=== PATIENT | male | born 1965 | race African-American/Black ===

== ENCOUNTER 2021-06-01 12:46 | Inpatient (IN) | payer OTHER ==
[~2021-06-01] VITALS: Ht 198.1 cm; Wt 104.3 kg
--- NOTE | ~2021-06-01 | EMS ---
[address] [address] EMS Patient Care Report Name: NAOMIE CAMPBELL Room #: 354-P ADM IN M.R.#: [id number] Admission: 06/01/21 Attend Phys: Pavan Reynaga MD Discharge: Date of : 63 Report #: [id number] THIS REPORT FOR: //name// Report Transmitted: 06/04/2021 14:07 EMS Care Summary [place], [place]/[facility] Incident [id number] @ 06/01/2021 12:07 Incident Location [address] [place] [address] Patient NAOMIE CAMPBELL Male, 55 Years 1965 Patient Address [address] [place] [address] Patient History Hypertension (HTN), Patient Allergies Morphine, Patient Medications None Reported, Chief Complaint SOA/COVID SYMPTOMS Disposition Transported No Lights/[place] Dispatch Reason Breathing Problem Transported To [facility] Narrative M41 DISPATCHED WITH [place] FIRE TO A BREATHING PROBLEM. M41 AOS AND FOUND A MALE PT SITTING ON THE SIDE OF THE BED. PT DOES NOT APPEAR TO BE IN ANY DISTRESS. PT STATES THAT HE FEELS IF HIS CHEST IS CONGESTED [address] [address] EMS Patient Care Report Name: NAOMIE CAMPBELL Room #: 354-P ADM IN M.R.#: [id number] Admission: 06/01/21 Attend Phys: Pavan Reynaga MD Discharge: Date of : 63 Report #: [id number] AND HE IS SOA. PT DENIES COUGH. PT DOES NOT HAVE A FEVER. THE PT DENIES CP, DIZZINESS, NV, ABD PAIN. THE PT STATES THAT HE HAS HX OF HTN AND NOTHING ELSE. PT STATES HE WAS EXPOSED TO SOMEONE ON FRIDAY WHO TESTED POSITIVE LAST FRIDAY. THE PT STATES THAT HE HAS NO OTHER COMPLAINTS AT THIS TIME. O2 SAT OBTAINED. PT WAS IN MID 80S ON ROOM AIR. PT GIVEN O2 NC 6LPM. PTS O2 SATS IMPROVED. VITALS OBTAINED. BGA OBTAINED. 4 LEAD OBTAINED. M41 EN ROUTE [facility]. EN ROUTE PT REMAINED STABLE. REPORT GIVEN TO RN. SIGNATURES OBTAINED. I SIGNED FOR PT DUE TO EXPOSURE TO COVID 19. TRANSFER OF CARE TOOK PLACE. M41 IN SERVICE. 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 Initial Vitals @12:25BP: 120/84,SpO2: 91, @12:37P: 101,CO: 5,SpO2: 93,[place] Suspected: false @12:25P: 101,R: 42,CO: 2,SpO2: 92, @12:24P: 102,R: 22,BP: 146/84,Pain: 0/10,GCS: 15,Glucose: 98,SpO2: 89,Revised Trauma: 12, @12:38P: 102,R: 22,BP: 111/75,Pain: 0/10,GCS: 15,SpO2: 95,Revised Trauma: 12, Assessments @12:30MENTAL:Event Oriented,Time Oriented,Place Oriented,Person Oriented,SKIN:HEENT:Head/Face: No Abnormalities,Neck/Airway: No Abnormalities,LUNG SOUNDS:General: No Abnormalities,ABDOMEN:General: No Abnormalities,PELVIS//GI:No Abnormalities,EXTREMITIES:Capillary Refill: Right Upper: < 2 Sec,Left Arm: No Abnormalities,Right Arm: No Abnormalities,Left Leg: No Abnormalities,Right Leg: No Abnormalities,PULSE:Radial: 2+ Normal,NEURO:No Abnormalities, Impression COVID-19 - Exposure to confirmed patient Procedures @12:16ALS AssessmentResponse: UnchangedSucceeded@12:17Oxygen FlowRate: 6 Device: Nasal Cannula (NC) Response: ImprovedSucceeded@12:253-Lead ECGResponse: [address] [address] EMS Patient Care Report Name: NAOMIE CAMPBELL [place] Room #: 354-P [facility] IN M.R.#: [id number] Admission: 06/01/21 Attend Phys: Pavan Renyaga MD Discharge: Date of : 63 Report #: [id number] UnchangedSucceeded Timeline 12:05,Call Received 12:05,Dispatch Notified 12:07,Dispatched 12:07,En Route 12:14,On Scene 12:16,At Patient 12:16,ALS Assessment,Response: UnchangedSucceeded, 12:17,Oxygen FlowRate: 6 Device: Nasal Cannula (NC) Response: ImprovedSucceeded, 12:24,BP: 146/84 M,PULSE: 102,RR: 22 R,SPO2: 89 Ox,ETCO2: ,B,PAIN: 0,GCS: 15, 12:25,BP: / M,PULSE: 101,RR: 42 R,SPO2: 92 Ox,ETCO2: ,BG: ,PAIN: ,GCS: , 12:25,3-Lead ECG,Response: UnchangedSucceeded, 12:25,BP: 120/84 M,PULSE: ,RR: R,SPO2: 91 Ox,ETCO2: ,BG: ,PAIN: ,GCS: , 12:28,Depart Scene 12:37,BP: / M,PULSE: 101,RR: R,SPO2: 93 Ox,ETCO2: ,BG: ,PAIN: ,GCS: , 12:38,BP: 111/75 M,PULSE: 102,RR: 22 R,SPO2: 95 Ox,ETCO2: ,BG: ,PAIN: 0,GCS: 15, 12:42,At Destination 12:50,Call Closed Disclaimer v1.1 Copyright 2020 [employer] This EMS Care Summary contains data elements from the applicable legal record (which may be displayed differently). It is designed to provide pertinent information for the following purposes: continuity of care, clinical quality, and state data reporting. The complete legal record is available to ED staff and administrators of the receiving hospital in [email or web address]'s Patient Tracker. All data is provided "as is."
[2021-06-01 12:47] VITALS: BP 131/84
[2021-06-01 13:35] LABS: ABSOLUTE NEUTROPHILS 3.6 thou/uL (1.4-8.2); BASOPHILS 0.4 % (0.0-2.0); HEMATOCRIT 51.1 % (42.0-52.0); HEMOGLOBIN 17.2 gm/dL (14.0-18.0); LYMPHOCYTES 14.9 % (24.0-44.0); MCH 29.7 pg (26.0-34.0); MCHC 33.6 g/dL (28.0-37.0); MCV 88.2 fL (80.0-100.0); MONOCYTES 9.1 % (1.0-8.0); PLATELET COUNT 134 thou/uL (150-400); POLYS 75.6 % (36.0-66.0); RDW 13.8 % (10.5-14.5); WBC 4.7 thou/uL (4.0-11.0)
[2021-06-01 13:43] LABS: ANION GAP 11 mmol/L (7-16); BUN 25 mg/dL (7-18); CALCIUM 8.3 mg/dL (8.5-10.1); CHLORIDE 101 mmol/L (98-107); CO2 25 mmol/L (21-32); CREATININE 1.5 mg/dL (0.7-1.3); GLUCOSE 109 mg/dL (74-106); POTASSIUM 4.5 mmol/L (3.5-5.1); SODIUM 137 mmol/L (136-145)
[2021-06-01 13:52] LABS: TROPONIN-I <0.06 ng/mL (<0.06)
[2021-06-01 17:09] VITALS: BP 138/92
[2021-06-01 19:35] VITALS: BP 126/78
--- NOTE | 2021-06-01 23:30 | NUR ---
PT RESTING IN BED LISTENING TO A BOOK ON PHONE. BLUNTED AFFECT. O2 PER NC. LUNGS DIMINISHED. IVF INTACT. PT PROVIDED HS SNACK. PT EDUCATED ON NEW MEDICATIONS TAKING FOR COVID.
[2021-06-02 03:55] VITALS: BP 139/82
[2021-06-02 04:28] LABS: ALBUMIN 2.9 g/dL (3.4-5.0); CALCIUM 8.4 mg/dL (8.5-10.1); CREATININE 1.7 mg/dL (0.7-1.3); DIRECT BILIRUBIN 0.1 mg/dL (<0.1-0.2); PHOSPHORUS 3.6 mg/dL (2.5-4.9); POTASSIUM 4.8 mmol/L (3.5-5.1); TOTAL BILIRUBIN 0.3 mg/dL (0.2-1.0); TOTAL PROTEIN 7.5 g/dL (6.4-8.2)
[2021-06-02 05:03] LABS: HEMATOCRIT 50.6 % (42.0-52.0); HEMOGLOBIN 16.9 gm/dL (14.0-18.0); MCH 29.6 pg (26.0-34.0); MCHC 33.4 g/dL (28.0-37.0); MCV 88.5 fL (80.0-100.0); RBC 5.72 mil/uL (4.50-6.00); RDW 13.7 % (10.5-14.5)
[2021-06-02 07:38] VITALS: BP 125/84
[2021-06-02 11:12] VITALS: BP 132/90
--- NOTE | 2021-06-02 12:17 | EKG ---
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 : 1965 Requested By: Donn Lyon Order Number: [id number] MD: Hieu Jeffery Measurements Intervals [place] Rate: 97 P: 38 AR: 167 QRS: -17 QRSD: 102 T: 131 QT: 359 QTc: 456 Interpretive Statements Sinus rhythm LAE, consider biatrial enlargement LVH with secondary repolarization abnormality Anterior ST elevation, probably due to LVH No previous ECG available for comparison Electronically Signed On 06-02-2021 12:17:43 CDT by Hieu Jeffery [email or web address] <ELECTRONICALLY SIGNED> By: Hieu Jeffery MD 06/02/21 1217 30 30 Hieu Jeffery MD /TADEO
[2021-06-02 15:18] VITALS: BP 123/75
[2021-06-02 21:17] VITALS: BP 117/69
--- NOTE | 2021-06-02 23:06 | NUR ---
PT ALERT AND ORIENTED X4. PT HAS FLAT AFFECT. MOANS WITH EACH BREATH. REFUSED PAIN MEDS. REFUSED SOMTHING TO HELP HIM SLEEP. SATS 88-90% PRESENTLY. NOTIFIED RT. SHE PLACED HIM ON HIGH FLOW NASAL CANNULA WITH HUMIDIFIER AT 8LNC. SAT 94%. WILL CONTINUE TO MONITOR FOR CHANGES. BED DOWN . CALL LIGHT IN REACH. BED ALARM IS ON.
[2021-06-03 01:36] VITALS: BP 107/67
[2021-06-03 03:05] VITALS: BP 106/67
--- NOTE | 2021-06-03 04:30 | HC ---
[facility] [place] [address] CONSULTATION Name: NAOMIE CAMPBELL Room #: [facility] IN M.R.#: [id number] Admission: 06/01/21 Attend Phys: Pavan Reynaga MD Discharge: Date of : 63 Report #: [id number] THIS REPORT FOR: cc: FAM - Family physician unknown FAM - Family physician unknown Brennen Kay MD ~ DATE OF SERVICE: 06/02/2021 INFECTIOUS DISEASE CONSULTATION ATTENDING PHYSICIAN: Dr. Reynaga. REASON FOR EVALUATION: COVID-19 infection, complicated by pneumonitis and respiratory failure requiring supplemental oxygen. HISTORY OF PRESENT ILLNESS: Chart reviewed, the patient examined. This is a 55-year-old gentleman without significant medical history, admitted with progressive dyspnea. Had been ill for a number of days, generalized myalgias, developed progressive dyspnea with cough, poor p.o. intake. It was notable he noted severe night sweats as well. On evaluation, chest x-ray did show some radiographic changes suggestive of pneumonia. Procalcitonin 0.06. D-dimer 0.42. Electrolytes were otherwise unremarkable. Creatinine was slightly elevated at 1.7. He did have a leukopenia as well. He was initiated on remdesivir. ALLERGIES: MORPHINE. CURRENT MEDICATIONS: Include albuterol, zinc, methylprednisolone, thiamine, ivermectin, ascorbic acid, remdesivir. PAST MEDICAL HISTORY: Otherwise unremarkable. FAMILY HISTORY: None. SOCIAL HISTORY: Nonsmoker, no ethanol, no illicit drug use. FAMILY HISTORY: Noncontributory. REVIEW OF SYSTEMS: Otherwise, as noted above. PHYSICAL EXAMINATION: GENERAL: He appears quite ill, although not overt toxic. He is lying in a left lateral decubitus position. He is pleasant, mildly encephalopathic, although responds appropriately, appears to be generally well nourished. VITAL SIGNS: Temperature 98.3, pulse 80, respirations 21, blood pressure is 125/84. [facility] [address] [place] [address] CONSULTATION Name: NAOMIE CAMPBELL Room #: 354-[facility] IN [facility]#: [id number] Admission: 06/01/21 Attend Phys: Pavan Reynaga MD Discharge: Date of : 63 Report #: [id number] SKIN: Warm, dry, no rashes. HEENT: Normocephalic. Extraocular muscles intact. NECK: Supple nasal cannula in place at 5 liters per minute. LUNGS: Bilateral scattered coarse breath sounds. HEART: Regular. I do not appreciate a murmur. ABDOMEN: Slightly distended, generally soft. No peritoneal signs. Nontender. EXTREMITIES: No cyanosis. GENITOURINARY AND RECTAL: Deferred. LABORATORY DATA: CBC: White count of 3.0, H and H 16.9 and 50.6, platelets of 144. Electrolytes: Sodium 138, potassium 4.8, chloride 102, bicarbonate is 26, anion gap of 10, BUN and creatinine 33 and 1.7, estimated GFR of 51. Albumin 29, total protein of 7.5. LFTs are borderline elevated, AST of 38, otherwise unremarkable. D-dimer 0.42. Procalcitonin 0.06. BNP 333. ASSESSMENT AND PLAN: Coronavirus infection, complicated by pneumonitis and respiratory failure, although he has no evident risk factors, is not clear of the white count's reactive situation, does have some minor elevation in his creatinine as well. I think he appears to be at somewhat increased risk for worsening illness. We will add antibacterial empirically, also Actemra as is available. Continue the remdesivir and ivermectin as well as vitamins. Continue to monitor expectantly. <ELECTRONICALLY SIGNED> By: Brennen Kay MD 06/03/21 0430 0930 18 Brennen Kay MD /nt
[2021-06-03 06:17] LABS: HEMATOCRIT 47.4 % (42.0-52.0); HEMOGLOBIN 16.1 gm/dL (14.0-18.0); MCH 29.8 pg (26.0-34.0); MCV 87.6 fL (80.0-100.0); RBC 5.42 mil/uL (4.50-6.00); RDW 13.8 % (10.5-14.5)
[2021-06-03 06:19] LABS: WBC 11.7 thou/uL (4.0-11.0)
[2021-06-03 06:42] LABS: ALBUMIN 2.4 g/dL (3.4-5.0); CALCIUM 7.8 mg/dL (8.5-10.1); CREATININE 1.5 mg/dL (0.7-1.3); DIRECT BILIRUBIN 0.1 mg/dL (<0.1-0.2); PHOSPHORUS 4.1 mg/dL (2.5-4.9); POTASSIUM 4.6 mmol/L (3.5-5.1); TOTAL BILIRUBIN 0.3 mg/dL (0.2-1.0); TOTAL PROTEIN 6.4 g/dL (6.4-8.2)
--- NOTE | 2021-06-03 07:45 | NUR ---
PT PROGRESSING TOWARDS D/C GOALS SLOWLY. HE IS STILL MOANING AT TIMES, REFUSED PAIN MEDICINE. O2 8LNC ON. IVF INFUSING.R AC.
[2021-06-03 08:00] VITALS: BP 116/75
[2021-06-03 11:23] VITALS: BP 120/84
[2021-06-03 14:36] LABS: BE(vivo) -1.7 mmol/L (-2 to +3); HCO3 20.9 mmol/L (22.0-26.0); PCO2 30.8 mmHg (35.0-45.0); PO2 63.8 mmHg (80.0-100.0); sO2 93.6 % (92.0-98.0)
[2021-06-03 16:16] VITALS: BP 125/83
--- NOTE | 2021-06-03 19:23 | NUR ---
ASSUMED PATIENT CARE AT 0700. A/O X3. ON 6L/NC. VSS. ADRIANA APPETIE. WILL KEEP MONITOR.
[2021-06-03 20:00] VITALS: BP 121/79
--- NOTE | 2021-06-04 02:29 | NUR ---
PT ALERT X4. FLAT AFFECT. MOANS AND GRUNTS IF IN PAIN. REFUSED ANY KIND OF PAIN MEDS. ENCOURAGED PT TO EAT DINNER AND A SNACK BUT HE REFUSED. IVF INFUSING R AC. VSS SATS 94-96% ON 6LNC. ENC PT TO TC&DB. BED DOWN CALL LIGHT IN REACH. BED ALARM IS ON. ENC PT TO SIT UP IN CHAIR FOR MEALS.
[2021-06-04 05:10] VITALS: BP 136/81
[2021-06-04 05:12] LABS: HEMATOCRIT 47.1 % (42.0-52.0); HEMOGLOBIN 15.6 gm/dL (14.0-18.0); MCH 29.5 pg (26.0-34.0); MCHC 33.1 g/dL (28.0-37.0); MCV 89.1 fL (80.0-100.0); RBC 5.28 mil/uL (4.50-6.00); RDW 13.5 % (10.5-14.5); WBC 10.7 thou/uL (4.0-11.0)
[2021-06-04 05:34] LABS: ALBUMIN 2.4 g/dL (3.4-5.0); CALCIUM 7.4 mg/dL (8.5-10.1); CREATININE 1.3 mg/dL (0.7-1.3); DIRECT BILIRUBIN 0.1 mg/dL (<0.1-0.2); PHOSPHORUS 3.5 mg/dL (2.5-4.9); POTASSIUM 4.6 mmol/L (3.5-5.1); TOTAL BILIRUBIN 0.3 mg/dL (0.2-1.0); TOTAL PROTEIN 5.6 g/dL (6.4-8.2)
--- NOTE | 2021-06-04 06:21 | NUR ---
PT CONTINUES TO HAVE DIMINISHED BREATHE SONDS. SATS 92-94% THIS AM ON 6LNC. INSTRUCTED ON NEED FOR SPUTUM SAMPLE. ENCOURAGED PT TO MOVE AROUND MORE TODAY.
[2021-06-04 07:13] VITALS: BP 128/84
[2021-06-04 11:21] VITALS: BP 126/88
--- NOTE | 2021-06-04 14:44 | NUR ---
INITIAL ASSESSMENT: CHARLI reviewed chart and spoke with nursing and attending physician. Pt was admitted from home due to COVID pneumonia. Pt placed in Enhanced Isolation. Pt has not received the COVID vaccine. Pt is afebrile and on 6L of O2. Pt is on IV abx and IV steroids. Remdesivir started on 06/01. CHARLI spoke with pt via phone. Introduced role of SW. Pt is alert/orientated. 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 Pt states that prior to admission, he has been independent with ADLs. No use of DME. No hx of HH or post-acute placement. Pt does not currently have a PCP. Pt states that the plan is for both he and his Godmother to return home when medically stable. Pt declines referral to a LTC facility for his Godmother, as he promised to ensure that she would be able remain at home and not be placed in a nursing facility. CHARLI is following to assist as needed with discharge planning.
[2021-06-04 15:36] VITALS: BP 141/92
--- NOTE | 2021-06-04 19:22 | NUR ---
assumed patient at 0700. a/o x4. tolerated on 6l/nc. up to chair. solwly towards poc goals,
[2021-06-04 20:09] VITALS: BP 126/78
--- NOTE | 2021-06-04 22:25 | NUR ---
PT ALERT AND ORIENTED X4. VSS AFEBRILE . SATS 96% ON 6LNC PRESENTY. PT MOANS AT TIMES. DENIED PAIN. BS DIMINSHED ON 6L. ENCOURAGED HIM TO SIT UP TODAY AND HE STATED HE SAT UP FOR 6 HRS. HE ALSO IS EATING BETER TODAY. RR 24. WILL CONTINUE TO MONITOR PT FOR CHANGES.
[2021-06-05 02:50] VITALS: BP 141/97
--- NOTE | 2021-06-05 04:54 | NUR ---
PT PROGRESSING SLOWLY TOWARDS D/C GOALS. VSS AFEBRILE TONIGHT. NO C/O SOA. LESS GRUNTING AND MOANING NOTED FROM PT TONIGHT. HE STILL DENIED PAIN WHEN ASKED IF HE IS IN PAIN. PT MORE COMPLIANT WITH EATING AND SITTING UP. SATS 92-96% TONIGHT ON 6LNC.
[2021-06-05 06:02] LABS: HEMATOCRIT 46.1 % (42.0-52.0); HEMOGLOBIN 15.5 gm/dL (14.0-18.0); MCH 29.7 pg (26.0-34.0); MCHC 33.7 g/dL (28.0-37.0); MCV 88.3 fL (80.0-100.0); RBC 5.22 mil/uL (4.50-6.00); RDW 13.9 % (10.5-14.5); WBC 8.5 thou/uL (4.0-11.0)
[2021-06-05 06:43] LABS: ALBUMIN 2.4 g/dL (3.4-5.0); CALCIUM 7.7 mg/dL (8.5-10.1); CREATININE 1.2 mg/dL (0.7-1.3); DIRECT BILIRUBIN 0.1 mg/dL (<0.1-0.2); POTASSIUM 4.8 mmol/L (3.5-5.1); TOTAL BILIRUBIN 0.3 mg/dL (0.2-1.0); TOTAL PROTEIN 5.5 g/dL (6.4-8.2)
[2021-06-05 07:17] VITALS: BP 136/86
[2021-06-05 11:00] VITALS: BP 134/88
--- NOTE | 2021-06-05 13:53 | NUR ---
SW reviewed chart and spoke with nursing and attending physician. Pt remains in Enhanced Isolation due to COVID. Pt is afebrile and on 4-6L of O2. Pt is on IV abx and IV steroids. Actemra and Remdesivir ordered. Therapy evals ordered to assess pt for discharge needs. Plan is for pt to discharge home when medically stable. SW is following to assist as needed with discharge planning.
[2021-06-05 15:06] VITALS: BP 137/92
--- NOTE | 2021-06-05 17:31 | NUR ---
ASSUMED PATIENT CARE AT 0700. A/O X4. TITRATED O2 TO 3L TOLERATED WELL. POOR APPETITE,SLOWLY TOWARDS POC GOALS.
[2021-06-05 19:32] VITALS: BP 131/72
--- NOTE | 2021-06-06 03:13 | NUR ---
PROGRESS PT A/O X, UP WITH SBA ON 3 LITERS O2 LUNG SOUNDS DIMINISHED. IV TO RF INTACT INFUSING NS@100CC/HR. REMDESIVIR INFUSED ORDERED FOLLOWED BY 50CC NS FLUSH BAG. VOIDING QS PER URINAL HAD A SMALL BM. TOOK A SHOWER INDEPENDENTLY WITH PORTABLE O2 TANK. PT REPORTED FATIGUE AFTER AND ASSISTED TO BED SCD'S REPLACED CONTINUE POC.
[2021-06-06 03:32] VITALS: BP 145/100
[2021-06-06 04:54] LABS: HEMATOCRIT 46.8 % (42.0-52.0); HEMOGLOBIN 15.6 gm/dL (14.0-18.0); MCH 29.6 pg (26.0-34.0); MCHC 33.2 g/dL (28.0-37.0); RBC 5.26 mil/uL (4.50-6.00); RDW 13.3 % (10.5-14.5); WBC 8.6 thou/uL (4.0-11.0)
[2021-06-06 05:41] LABS: CALCIUM 7.7 mg/dL (8.5-10.1); CREATININE 1.2 mg/dL (0.7-1.3); POTASSIUM 4.6 mmol/L (3.5-5.1)
[2021-06-06 07:24] VITALS: BP 141/97
[2021-06-06 11:11] VITALS: BP 136/71
--- NOTE | 2021-06-06 14:07 | NUR ---
CHARLI reviewed chart and spoke with nursing and attending physician. Pt remains in Enhanced Isolation due to COVID. Pt is afebrile and on 2L of O2 at rest. Pt needed 5L of O2 with therapy. Pt is on IV abx and IV steorids. Discharge home is anticipated in 1-2 days. CHARLI spoke with pt via phone to discuss discharge plan. Pt states he feels that he will be strong enough to return home soon. SW discussed possible HH services. Pt is agreeable. CHARLI confirmed home address. HH providers discussed. No preference voiced. CHARLI notified [facility] of new referral. CHARLI discussed with pt the plan for his Godmother, to discharge home with plan to readmit to [facility], when he is discharged. Pt is agreeable with plan. CHARLI is following to assist as needed with discharge planning.
[2021-06-06 15:12] VITALS: BP 147/93
--- NOTE | 2021-06-06 17:45 | NUR ---
PT ALERT AND ORIENTED TIMES FOUR. VSS. 3L NC. PT DENIES PAIN. PT TOLERATES MEDS AND MEALS. PT WORKED WELL WITH PT/OT UP WALKING IN THE ROOM. PT PROGRESSING TOWRADS POC GOALS.
[2021-06-06 19:29] VITALS: BP 146/99
[2021-06-07 03:09] VITALS: BP 125/85
--- NOTE | 2021-06-07 04:18 | NUR ---
PROGRESS PT A/O X4 UP WITH SBA GAIT STEADY BUT GETS SOB WITH TOO MUCH ACTIVITY REQUIRES INCREASED OXYGEN. ON 2 LITERS O2 AND UP TO 5 LITERS WITH ACTIVITY LUNGS CLEAR BUT DIMINISHED NON PRODUCTIVE COUGH PT STATED OCCASIONALLY HAS A SMALL AMOUNT OF THIN CLEAR SPUTUM. VSS, TELEMETRY INTACT READING SR. TAKING ADEQUATE PO FLUIDS, POOR APPETITE STATES THE FOOD HERE GIVES HIM HEART BURN, IS RECEPTIVE TO SNACKS HAD PEANUT BUTTER AND MAURO CRACKERS FOR HS SNACK. PLAN IS TO DC HOME IN 1 TO 2 DAYS WITH HOME HEALTH.
[2021-06-07 07:37] VITALS: BP 135/90
--- NOTE | 2021-06-07 09:42 | NUR ---
Seen for LOS x 6. Pt with low meal intakes, however, documentation reports he gets heartburn from the meals here. He snacks throughout the day. Wt 228-230# since admit. Vitamin pack, steroid and immunosupressant in place. Plans are to d/c home with home health in the next couple of days. Physician documents severe PCM, RD to defer dx. Low nutrition risk.
[2021-06-07 12:23] VITALS: BP 150/102
[2021-06-07] MEDS ORDERED: PROVENTIL HFA6.7 G1 INH (13:58)
[2021-06-07] MEDS ORDERED: MUCINEX600 MG PO (13:58)
[2021-06-07] MEDS ORDERED: PREDNISONE 10 M10 M1 PO (13:58)
[2021-06-07 14:05] VITALS: BP 150/102
--- NOTE | 2021-06-07 15:27 | NUR ---
ASSUMED PATIENT CARE AT 0700. A/OX4. TOLERATED 2L/NC. AMBULATED IN ROOM. DESAT WITH ACTIVITY. PROGRESSING TOWARDS POC GOALS. WILL DC TO HOME WITH HH SOON.
--- NOTE | 2021-06-07 15:31 | NUR ---
DISCHARGE NOTE: CHARLI reviewed chart and spoke with nursing and attending physician. Pt remains in Enhanced Isolation due to COVID. Pt is afebrile and on O2. Pt requests to be discharged home today, as his Godmother is discharging home with hospice at 1800 today. Pt was able to visit her in her room earlier today. Rest/exercise oximetry completed. Pt needs 2L with activity. CHARLI spoke with pt via phone to discuss discharge plan. Pt is aware and in agreement with plan. Options for DME companies provided. No preference voiced. CHARLI notified by [facility] liaison that they are not in-network with pt's insurance. CHARLI contacted [facility] , [facility] and [facility]. All are not able to accept [employer] and/or COVID pts at this time. CHARLI contacted [facility] liaison, who states they will review case. CHARLI faxed referral. [facility] is able to accept pt on service. Start of care planned for 24-48 hours after d/c. Pt has a PCP appt with Dr. Jodie Ballard with [facility] primary care on 06/19 at 0930. Attending physician to follow for HH orders. CHARLI faxed d/c ppwkr to [facility] and confirmed info was received. CHARLI faxed pt's info and testing to [facility] for home O2. CHARLI notified [facility] liaison. Portable O2 tank onsite and will be sent home with pt. Pt's family to provide transportation. Contact info for and [facility] placed in pt's discharge summary. CHARLI spoke with pt's family member, Terrence, via phone to discuss discharge. All in agreement with plan. No additional SW needs identified at this time, but is available to assist should needs arise.
== END 2021-06-07 15:37 | disposition home health service (06) | DRG 871 ==
LOC: ER 12:46 → 3W 15:58 → EROBS 15:58 → 3W 17:21
PROVIDERS: Emergency Medicine; Hospitalist; ADMIT Internal Medicine; ATTEND Internal Medicine
PROC: XW033H5 Introduction of Tocilizumab into Peripheral Vein, Percutaneous Approach, New Technology Group 5 (ICD-10-PCS; principal; 2021-06-01)
PROC: XW033E5 Introduction of Remdesivir Anti-infective into Peripheral Vein, Percutaneous Approach, New Technology Group 5 (ICD-10-PCS; principal; 2021-06-01)
PROC: 5A0935A Assistance with Respiratory Ventilation, Less than 24 Consecutive Hours, High Flow/Velocity Cannula (ICD-10-PCS; 2021-06-03)
DX: A41.89 Other specified sepsis (principal); U07.1 COVID-19; J96.01 Acute respiratory failure with hypoxia; J12.82 Pneumonia due to coronavirus disease 2019; E43 Unspecified severe protein-calorie malnutrition; N17.9 Acute kidney failure, unspecified; N18.9 Chronic kidney disease, unspecified; I12.9 Hypertensive chronic kidney disease with stage 1 through stage 4 chronic kidney disease, or unspecified chronic kidney disease; D69.6 Thrombocytopenia, unspecified; Z88.6 Allergy status to analgesic agent; Z79.899 Other long term (current) drug therapy
CPT/HCPCS: 10879